=== PATIENT | female | born 1995 | race American Indian/Alaskan Native ===

== ENCOUNTER 2019-04-27 08:23 | Inpatient (IN) | payer OTHER ==
[2019-04-27] MEDS ORDERED: ONDANSETRON 4 MG ODT TAB PO ONE (08:39)
[2019-04-27] MEDS ORDERED: ONDANSETRON 4 MG ODT TAB ONE (08:42)
[2019-04-27 09:18] LABS: Basophils % (Auto) 0.4 % (0.0-1.8); Eosinophils # (Auto) 0.1 K/mm3 (0.0-0.4); Eosinophils % (Auto) 1.5 % (0.0-4.3); Hematocrit 41.5 % (30.3-42.9); Hemoglobin 13.2 gm/dl (10.1-14.3); Lymphocytes # (Auto) 2.3 K/mm3 (1.2-5.4); Lymphocytes % (Auto) 30.7 % (13.4-35.0); Mean Corpuscular HGB Conc 32 % (30-34); Mean Corpuscular Volume 76 fl (79-97); Monocytes # (Auto) 0.8 K/mm3 (0.0-0.8); Monocytes % (Auto) 10.6 % (0.0-7.3); Platelet Count 307 K/mm3 (140-440); Red Blood Count 5.46 M/mm3 (3.65-5.03); Red Cell Distribution Width 15.2 % (13.2-15.2)
[2019-04-27 09:38] LABS: Alanine Aminotransferase 14 units/L (7-56); BUN/Creatinine Ratio 15; Blood Urea Nitrogen 9 mg/dL (7-17); Calcium 9.6 mg/dL (8.4-10.2); Hemolysis Index 6
--- NOTE | 2019-04-27 09:38 | Ultrasound Report ---
US pelvis duplex doppler comp, US transvaginal / INDICATION: abd pain with hx ovarian torsion. COMPARISON: None. FINDINGS: Transabdominal and transvaginal pelvic sonography with Doppler evaluation performed in this patient with LMP of 04/04/2019 demonstrates a 6.1 x 3.3 x 3.9 cm anteverted, homogenous uterus. Echoge lidia endometrial stripe thickness of 0.5 cm toward the fundus, endovaginal image 5. Minimal fluid joshua g the lower uterine segment and the cervix incidentally noted. No significant pelvic free fluid. Both ovaries identified, approximately 2.4 x 1.5 x 1.4 cm on the right and 2.3 x 1.4 x 2.3 cm on the left. Normal left ovarian blood flow seen, though no significant internal blood flow in the right ova ry could not be documented. IMPRESSION: 1. Normal left ovarian blood flow, though no significant blood flow/normal waveform could be document ed in the right ovary. Right ovarian torsion not entirely excluded in this setting, though sonographi c findings alone are not confirmatory for torsion diagnosis and may also be correlated for clinically in an appropriate setting. 2. Few other findings, as above. I phoned the above results to Dr. Mccrary in the ER, 8:30 AM RESEARCH AND DEVELOPMENT RESEARCHER, 04/27/2019. Thank you for the opportunity to participate in this patient's care. Signer Name: Ryanne Anaya Signed: 04/27/2019 9:33 AM Workstation Name: [id number]
--- NOTE | 2019-04-27 09:38 | Ultrasound Report ---
US pelvis duplex doppler comp, US transvaginal / INDICATION: abd pain with hx ovarian torsion. COMPARISON: None. FINDINGS: Transabdominal and transvaginal pelvic sonography with Doppler evaluation performed in this patient with LMP of 04/04/2019 demonstrates a 6.1 x 3.3 x 3.9 cm anteverted, homogenous uterus. Echoge lidia endometrial stripe thickness of 0.5 cm toward the fundus, endovaginal image 5. Minimal fluid joshua g the lower uterine segment and the cervix incidentally noted. No significant pelvic free fluid. Both ovaries identified, approximately 2.4 x 1.5 x 1.4 cm on the right and 2.3 x 1.4 x 2.3 cm on the left. Normal left ovarian blood flow seen, though no significant internal blood flow in the right ova ry could not be documented. IMPRESSION: 1. Normal left ovarian blood flow, though no significant blood flow/normal waveform could be document ed in the right ovary. Right ovarian torsion not entirely excluded in this setting, though sonographi c findings alone are not confirmatory for torsion diagnosis and may also be correlated for clinically in an appropriate setting. 2. Few other findings, as above. I phoned the above results to Dr. Mccrary in the ER, 8:30 AM FOLDER MACHINE ADJUSTER, 04/27/2019. Thank you for the opportunity to participate in this patient's care. Signer Name: Ryanne Anaya Signed: 04/27/2019 9:33 AM Workstation Name: [id number]
--- NOTE | 2019-04-27 09:39 | Emergency Department Report ---
HPI - General Chief Complaint: Abdominal Pain Time Seen by Provider: 04/27/19 08:56 - HPI HPI: 23-year-old -Ch[place] female presents to the emergency department with the complaint of right-sided pelvic pain, nausea and vomiting, and a history of recent ovarian torsion. The patient was in [place] as of 2 weeks ago and went to an emergency department there and says she was diagnosed with ovarian torsion. The patient says that there was a specialist, which I assume to be TRAINING AND DEVELOPMENT HEAD, that was called but the patient says that she never saw the specialist and was discharged home to follow up with her primary TRAINING AND DEVELOPMENT HEAD and was told that the ovarian torsion at that time was "self correcting." The patient went into see her TRAINING AND DEVELOPMENT HEAD but was told that her insurance was not valid and was only valid in [place] and therefore they would not see her. The patient just kept it in control. She denies any fever, dysuria, vaginal bleeding or discharge. ED Past Medical Hx - Past Medical History Previous Medical History?: Yes Additional medical history: OVARIVAN TORSION - Social History Smoking Status: Never Smoker Substance Use Type: None ED Review of Systems ROS: Stated complaint: ABD PAIN/RECTUM PAIN/OVARIES Other details as noted in HPI Comment: All other systems reviewed and negative Constitutional: denies: chills, fever Eyes: denies: eye pain, vision change ENT: denies: ear pain, throat pain Respiratory: denies: cough, shortness of breath Cardiovascular: denies: chest pain, palpitations Gastrointestinal: nausea, vomiting Genitourinary: other (pelvic pain). denies: dysuria, discharge Musculoskeletal: denies: back pain, myalgia Skin: denies: rash, lesions Neurological: denies: headache, weakness Physical Exam - Physical Exam Vital Signs: Vital Signs 04/27/19 04/27/19 08:31 08:34 Temperature 98 F Pulse Rate 108 H Respiratory 18 Rate Blood Pressure 134/99 O2 Sat by Pulse 98 Oximetry Physical Exam: GENERAL: The patient is well-developed well-nourished. HEENT: Normocephalic. Atraumatic. Patient has moist mucous membranes. EYES: Extraocular motions are intact. NECK: Supple. Trachea is midline. CHEST/LUNGS: Clear to auscultation. There is no respiratory distress noted. HEART/CARDIOVASCULAR: Regular. There is no tachycardia. There is no murmur. ABDOMEN: Abdomen is soft. Unable to reproduce lower abdominal and pelvic right- sided pain to palpation. Patient has normal bowel sounds. There is no abdominal distention. SKIN:Skin is warm and dry. . NEURO: The patient is awake, alert, and oriented. The patient is cooperative. The patient has no focal neurologic deficits. Normal speech. MUSCULOSKELETAL: There is no tenderness or deformity. There is no evidence of acute injury. ED Course Vital Signs 04/27/19 04/27/19 08:31 08:34 Temperature 98 F Pulse Rate 108 H Respiratory 18 Rate Blood Pressure 134/99 O2 Sat by Pulse 98 Oximetry - Consultations Consultation #1: 04/27/19 09:42 I spoke with the TRAINING AND DEVELOPMENT HEAD on-call, Dr. Cote, who says that she is coming into the emergency department to evaluate this patient. ED Medical Decision Making - Lab Data Result diagrams: 04/27/19 08:48 04/27/19 08:48 - EKG Data -: EKG Interpreted by Me EKG shows normal: sinus rhythm (sinus arrhythmia), axis, intervals, QRS complexes, ST-T waves Rate: normal - EKG Data When compared to previous EKG there are: previous EKG unavailable Interpretation: normal EKG - Radiology Data Radiology results: report reviewed US pelvis duplex doppler comp, US transvaginal / INDICATION: abd pain with hx ovarian torsion. COMPARISON: None. FINDINGS: Transabdominal and transvaginal pelvic sonography with Doppler evaluation performed in this patient with LMP of 04/04/2019 demonstrates a 6.1 x 3.3 x 3.9 cm anteverted, homogenous uterus. Echogenic endometrial stripe thickness of 0.5 cm toward the fundus, endovaginal image 5. Minimal fluid along the lower uterine segment and the cervix incidentally noted. No significant pelvic free fluid. Both ovaries identified, approximately 2.4 x 1.5 x 1.4 cm on the right and 2.3 x 1.4 x 2.3 cm on the left. Normal left ovarian blood flow seen, though no significant internal blood flow in the right ovary could not be documented. IMPRESSION: 1. Normal left ovarian blood flow, though no significant blood flow/normal waveform could be documented in the right ovary. Right ovarian torsion not entirely excluded in this setting, though sonographic findings alone are not confirmatory for torsion diagnosis and may also be correlated for clinically in an appropriate setting. 2. Few other findings, as above. - Medical Decision Making This patient presents with right lower quadrant abdominal and pelvic pain, along with some nausea and vomiting. Labs are unremarkable. The patient had a stat pelvic ultrasound/Doppler that shows no blood flow to the right ovary. The TRAINING AND DEVELOPMENT HEAD on-call, Dr. Cote, was contacted and came to see the patient in the emergency department. She will be taking her to the operating room for surgical evaluation of this possible ovarian torsion. At one point, to the TRAINING AND DEVELOPMENT HEAD, the patient complained of some left lateral chest pain. The patient herself says it feels like when she has anxiety and the patient admits to feeling anxious secon jaycee to potentially going to the operating room. An EKG was done that shows sinus arrhythmia without any signs of ST elevation [place] or ischemia. - Differential Diagnosis ovarian torsion, ovarian cyst, , UTI Critical Care Time: Yes Critical care time in (mins) excluding proc time.: 35 Critical care attestation.: If time is entered above; I have spent that time in minutes in the direct care of this critically ill patient, excluding procedure time. Critical care time was spent on this patient in doing her initial evaluation, multiple re-evaluations, discussion with the OBGYN, discussion with radiology, analgesia, IVF resuscitation. Critical Care Time: 35 minutes ED Disposition Clinical Impression: Ovarian torsion Disposition: OP ADMIT IP TO THIS HOSP Is pt being admited?: Yes Condition: Serious Time of Disposition: 14:46
[2019-04-27 10:02] LABS: Bacteria,Urine 4+ /HPF (Negative); Bilirubin,Urine NEG (Negative); Blood,Urine LG (Negative); Color,Urine Yellow (Yellow); Hyaline Casts,Urine 1 /LPF; Mucus,Urine 3+ /HPF; Protein,Urine <15 mg/dL mg/dL (Negative); Urobilinogen,Urine < 2.0 mg/dL (<2.0)
[2019-04-27] MEDS ORDERED: MORPHINE 4 MG/1 ML INJ IV ONE (10:22)
[2019-04-27] MEDS ORDERED: ONDANSETRON 4 MG/2 ML INJ IV ONE (10:22)
[2019-04-27] MEDS ORDERED: ONDANSETRON 4 MG/2 ML INJ ONE ×2 (10:22→12:13)
[2019-04-27] MEDS ORDERED: MORPHINE 2 MG/1 ML INJ ONE (10:26)
[2019-04-27] MEDS ORDERED: PROPOFOL 200 MG/20 ML VIAL IV ONE ×2 (12:13→17:21)
[2019-04-27] MEDS ORDERED: LIDOCAINE MPF (2%) 20 MG/1 ML VIAL 5 ML ONE ×2 (12:13→17:20)
[2019-04-27] MEDS ORDERED: NEOSTIGMINE 10MG/10 ML INJ MDV ONE (12:13)
[2019-04-27] MEDS ORDERED: GLYCOPYRROLATE 0.4 MG/2 ML INJ ONE (12:13)
[2019-04-27] MEDS ORDERED: BUPIVACAINE/PF (0.5%) 5 MG/1 ML 30 ML VIAL INFILTRATI ONE ×4 (12:13→18:56)
[2019-04-27] MEDS ORDERED: SUCCINYLCHOLINE CHLORIDE 200 MG/10 ML INJ MDV ONE (12:13)
[2019-04-27] MEDS ORDERED: fentaNYL 250 MCG/5 ML INJ ONE (12:13)
[2019-04-27] MEDS ORDERED: dexAMETHasone 20 MG/5 ML VIAL ONE (12:13)
[2019-04-27] MEDS ORDERED: ROCURONIUM 50 MG/5 ML INJ IV ONE ×2 (12:13→17:20)
[2019-04-27] MEDS ORDERED: LACTATED RINGERS 1,000 ML ONE ×2 (12:32→18:49)
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
--- NOTE | 2019-04-27 12:38 | Anesthesia Consultation ---
Anesthesia Consult and Med Hx Date of service: 04/27/19 - Airway Anesthetic Teeth Evaluation: Good ROM Head & Neck: Adequate Mental/Hyoid Distance: Adequate Mallampati Class: Class I Intubation Access Assessment: Good - Pulmonary Exam CTA: Yes - Cardiac Exam Cardiac Exam: No Murmur - Pre-Operative Health Status ASA Pre-Surgery Classification: ASA3 Proposed Anesthetic Plan: General - Pulmonary Hx Smoking: Yes (approx 1 cigar per day, last cigar 04/27/19 @0530) Hx Asthma: No Hx Respiratory Symptoms: No SOB: No COPD: No Home Oxygen Therapy: No Hx Pneumonia: Yes (childhood) Hx Sleep Apnea: Yes (snores) - Cardiovascular System Hx Hypertension: No Hx Coronary Artery Disease: No Hx Heart Attack/AMI: No (patient states told that she had a heart attack but it was skipped beats) Hx Angina: No Hx Percutaneous Transluminal Coronary Angioplasty (PTCA): No Hx Cardia Arrhythmia: Yes (patient states she was told she had skipped beats) Hx Pacemaker: No Hx Internal Defibrillator: No Hx Valvular Heart Disease: No Hx Heart Murmur: No Hx Peripheral Vascular Disease: No - Central Nervous System Hx Seizures: Yes (pseudo-seizures brought on by anxiety ) CVA: No Hx Back Pain: Yes Hx Psychiatric Problems: Yes (severe anxiety) - Gastrointestinal Hx Ulcer: Yes Hx Gastroesophageal Reflux Disease: Yes (was taking nexium previously. this has been stopped) - Endocrine Hx Renal Disease: No Hx End Stage Renal Disease: No Hx Cirrhosis: No Hx Liver Disease: No Hx Insulin Dependent Diabetes: No Hx Non-Insulin Dependent Diabetes: No Hx Thyroid Disease: Yes Hx Hypothyroidism: No Hx Hyperthyroidism: Yes (not currently taking medication) - Hematic Hx Anemia: Yes Hx Sickle Cell Disease: No - Other Systems Hx Alcohol Use: Yes (once every 2 weeks) Hx Substance Use: Yes (marijuana use) Hx Cancer: No Hx Obesity: Yes
--- NOTE | 2019-04-27 12:45 | Anesthesia Day of Surgery ---
Anesthesia Day of Surgery - Day of Surgery Patient Examined: Yes Patient H&P Reviewed: Yes Patient is NPO: Yes
[2019-04-27] MEDS ORDERED: HYDROmorphone 1 MG/1 ML INJ IV PRN (12:46)
[2019-04-27] MEDS ORDERED: KETOROLAC 30 MG/1 ML INJ ONE (13:00)
[2019-04-27] MEDS ORDERED: ceFAZolin/STERILE WATER 2 GM/20 ML SYRINGE IV NR (13:01)
[2019-04-27] MEDS ORDERED: LACTATED RINGERS 1,000 ML IV SCH (13:01)
[2019-04-27] MEDS ORDERED: HYDROmorphone 1 MG/1 ML INJ IV ONE (13:52)
--- NOTE | 2019-04-27 14:36 | Consultation ---
History of Present Illness Consult date: 04/27/19 Consult reason: pre op evaluation History of present illness: This is a 23 year old female with a reports right ovarian torsion diagnosed in February at [place], [place]. She was discharged and told to follow-up with a statistical analyst but has not do so. Patient now presents with complaints of right lower quadrant pain with nausea and vomiting. Patient reports symptoms began 3 days ago after she ran out of pain medications. Patient has been evaluated by Gynecology and is planned for surgery. There is no prior cardiac history. Patient denies chest pain and unusual shortness of breath. A 12 lead ECG is sinus rhythm with anterolateral abnormalities. There is no prior ECG available for comparison. A cardiac consultation has been requested for pre-operative risk assessment. 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) Medications and Allergies Allergies Allergy/AdvReac Type Severity Reaction Status Date / Time dicyclomine [From Bentyl] Allergy Rash Verified 04/27/19 11:55 haloperidol [From Haldol] Allergy Hives Verified 04/27/19 08:26 latex Allergy Hives Verified 04/27/19 08:26 meloxicam Allergy Rash Verified 04/27/19 11:55 tramadol Allergy Hives Verified 04/27/19 08:26 Active Meds: Active Medications Cefazolin Sodium (Ancef/Sterile Water 2 Gm/20 Ml) 2 gm IV PREOP NR Stop: 04/28/19 13:00 Hydromorphone HCl (Dilaudid) 0.5 mg IV Q10MIN PRN PRN Reason: Pain , Severe (7-10) Stop: 04/27/19 23:59 Lactated Ringer's (Lactated Ringers) 1,000 mls @ 100 mls/hr IV DIRECT MEMO Physical Examination Vital Signs Pulse BP Pulse Ox 108 H 134/99 98 04/27/19 08:31 04/27/19 08:31 04/27/19 08:31 General appearance: no acute distress, obese HEENT: Positive: PERRL Neck: Positive: trachea midline Cardiac: Positive: Reg Rate and Rhythm Lungs: Positive: Normal Breath Sounds Neuro: Positive: Grossly Intact Extremities: Absent: edema Results 04/27/19 08:48 04/27/19 08:48 Cardiac Enzymes 04/27/19 Range/Units 08:48 AST 15 (5-40) units/L CBC 04/27/19 Range/Units 08:48 WBC 7.4 (4.5-11.0) K/mm3 RBC 5.46 H (3.65-5.03) M/mm3 Hgb 13.2 (10.1-14.3) gm/dl Hct 41.5 (30.3-42.9) % Plt Count 307 (140-440) K/mm3 Lymph # 2.3 (1.2-5.4) K/mm3 [place] # 0.8 (0.0-0.8) K/mm3 Eos # 0.1 (0.0-0.4) K/mm3 Baso # 0.0 (0.0-0.1) K/mm3 Comprehensive Metabolic Panel 04/27/19 Range/Units 08:48 Sodium 142 (137-145) mmol/L Potassium 4.2 (3.6-5.0) mmol/L Chloride 108.0 H (98-107) mmol/L Carbon Dioxide 19 L (22-30) mmol/L BUN 9 (7-17) mg/dL Creatinine 0.6 L (0.7-1.2) mg/dL Glucose 106 H (65-100) mg/dL Calcium 9.6 (8.4-10.2) mg/dL AST 15 (5-40) units/L ALT 14 (7-56) units/L Alkaline Phosphatase 101 (35-129) units/L Total Protein 7.7 (6.3-8.2) g/dL Albumin 4.0 (3.9-5) g/dL Assessment and Plan Right lower quadrant pain Abnormal ECG Cardiac risk assessment Recommendations: Obtain a prior ECG for cardiac review. Echocardiogram for LVEF assessment.
[2019-04-27] MEDS ORDERED: MIDAZOLAM 2 MG/2 ML INJ IV ONE (16:28)
[2019-04-27] MEDS ORDERED: MIDAZOLAM 2 MG/2 ML INJ ONE (17:21)
[2019-04-27] MEDS ORDERED: fentaNYL 100 MCG/2 ML INJ ONE ×2 (17:21→18:37)
[2019-04-27] MEDS ORDERED: HYDROmorphone 1 MG/1 ML INJ ONE ×2 (18:08→19:06)
[2019-04-27] MEDS ORDERED: SUGAMMADEX SODIUM 200 MG/2 ML VIAL IV ONE (18:50)
[2019-04-27] MEDS ORDERED: IBUPROFEN 600 MG TAB PO PRN (19:41)
[2019-04-27] MEDS ORDERED: HYDROcodone/ACETAMINOPHEN 5-325 MG TAB PO PRN (19:41)
[2019-04-27] MEDS ORDERED: ACETAMINOPHEN 325 MG TAB PO PRN (19:41)
--- NOTE | 2019-04-27 19:41 | Operative Report ---
Operative Report Operative Report: Preop diagnosis 1. Acute abdominal pain 2. Suspected ovarian torsion - right ovary no blood flow Postop diagnosis 1. Acute abdominal pain 2. Hemoperitoneum 3. Evidence of ruptured right ovarian hemorrhagic cyst Procedure 1. Diagnostic laparoscopy Surgeon Dr. Myla Cote Findings 1. 6-7 week anteverted uterus 2. Normal appearing bilateral ovaries. No ovarian torsion noted right or left ovary. 3. Normal bilateral fallopian tubes. 4. Small (~10cc) blood clots in right adnexa suggestive of previously ruptured hemorrhagic ovarian cyst 5. Menstrual bleeding 6. No evidence of endometriosis Specimen: 1. None Anesthesia: General I/O EBL: <25ml Urine: 50-100cc clear Complications: none Disposition: Patient to PACU in stable condition INDICATION: 23yo G0 presented to ER complaining of acute abdominal pain. She was previously seen 3 weeks ago at a hospital in [place] and told she had an ovarian torsion and discharged with narcotics. Today ultrasound revealed no blood flow to right ovary and concern for ovarian torsion. Due to diagnosis of ovarian torsion as medical emergency recommendation to proceed to diagnostic laparoscopy was made. The risks including but not limited to bleeding, infection, injury to vessels, bladder and/or bowel, possible normal findings and nerve injury were discussed. Benefits and alternatives were discussed and informed consent signed. Due to abnormal EKG that patient had a pre-op cardiology consult and ECHO and was cleared for surgery. PROCEDURE: The patient was taken to OR 3 in stable condition. She was placed on the bed in the supine position and adequate anesthesia was achieved. She wore SCDs for DVT prophylaxis and received Ancef 2g. She was prepped and draped in the sterile fashion and a time out was done. She was re-positioned in the dorsal lithotomy position with Shiraz stirrups. A Mojica catheter was placed to drain the bladder. A sterile speculum was placed per vagina and a single toothed tenaculum was placed on the anterior lip of the cervix. The uterus was sounded to 6cm. A uterine manipulator was placed. Attention was then turned to the abdomen where a 0.5cm infraumbilical incision was made. A 5mm Applied Fios trocar was used to insufflate the abdomen with CO2 gas. The opening pressure was noted to be >10mm Hg. An intra-abdominal survey noted a normal right ovary with a small amount of clots in the right adnexa. No signs of endometriosis or pelvic adhesions were noted. A RLQ 5mm incision was made and 5mm trocar placed under direct visualization. An intra-abdominal survey noted grossly normal findings including no hepatic adhesions and normal appearing appendix. . The tubes, ovaries and uterus were grossly normal appearing. The RLQ trocar was removed under direct visualization. The abdomen was freed of gas and the infraumbilical trocar was removed. 0.5% Marcaine was injected into the abdominal incisions. The skin of both incisions was closed with 4-0 Vicryl. Attention was then turned to the perineum and uterine manipulator and Mojica catheter were removed. The procedure was ended. All counts were correct x 2. The patient was awakened from anesthesia in stable condition and transported to the PACU. I was present and scrubbed for the entire procedure.
[2019-04-27] MEDS ORDERED: ONDANSETRON 4 MG/2 ML INJ IV PRN (19:43)
[2019-04-27] MEDS ORDERED: diphenhydrAMINE 25 MG CAP PO PRN (19:43)
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
[2019-04-27] MEDS ORDERED: PROMETHAZINE 25 MG TAB PO PRN (20:27)
[2019-04-27] MEDS ORDERED: ZOLPIDEM 5 MG TAB PO PRN (20:27)
[2019-04-27] MEDS: FAMOTIDINE 20 MG TAB PO SCH (21:46)
[2019-04-27] MEDS: MORPHINE 2 MG/1 ML INJ IV PRN (21:47)
[2019-04-28] MEDS: MORPHINE 2 MG/1 ML INJ IV PRN (02:34)
[2019-04-28] MEDS: FAMOTIDINE 20 MG TAB PO SCH (09:27)
[2019-04-28 12:01] VITALS: BP 120/69
--- NOTE | 2019-04-28 13:31 | Consultation ---
History of Present Illness - Reason for Consult Consult date: 04/27/19 Medical clearance Requesting physician: LILLI WILSON - History of Present Illness 23-year-old -[place] female with obesity presents with right lower quadrant pain with nausea and vomiting. Is been going on for 3 days. Patient was evaluated in the emergency room and by gynecology and patient apparently has right ovarian torsion. Patient to be taken to the OR for surgery. EKG was abnormal hence medical clearance and cardiac clearance. I have requested cardiology clearance because of the emergent nature of clearance. No palpitations no shortness of breath. No chest pain. No recent travel. 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[employer]) Family history: hypertension Medications and Allergies Allergies Allergy/AdvReac Type Severity Reaction Status Date / Time dicyclomine [From Bentyl] Allergy Rash Verified 04/27/19 11:55 haloperidol [From Haldol] Allergy Hives Verified 04/27/19 08:26 latex Allergy Hives Verified 04/27/19 08:26 meloxicam Allergy Rash Verified 04/27/19 11:55 tramadol Allergy Hives Verified 04/27/19 08:26 Home Medications Medication Instructions Recorded Confirmed Last Taken Type HYDROcodone/APAP 5-325 [[place] 1 each PO Q6HR PRN 10 Days #20 04/27/19 Unknown Rx 5/325] tablet Ibuprofen [Motrin 800 MG tab] 800 mg PO Q8HR PRN 30 Days #30 04/27/19 Unknown Rx tablet Active Meds: Active Medications Acetaminophen (Tylenol) 650 mg PO Q4H PRN PRN Reason: Pain MILD(1-3)/Fever >100.5/TRIANA Acetaminophen/Hydrocodone Bitart ([place] 5/325) 2 each PO Q6H PRN PRN Reason: Pain, Moderate (4-6) Last Admin: 04/28/19 09:27 Dose: 2 each Documented by: Diphenhydramine HCl (Benadryl) 25 mg PO Q6H PRN PRN Reason: Itching Famotidine (Pepcid) 20 mg PO BID MEMO Last Admin: 04/28/19 09:27 Dose: 20 mg Documented by: Lactated Ringer's (Lactated Ringers) 1,000 mls @ 100 mls/hr IV DIRECT MEMO Last Admin: 04/27/19 12:40 Dose: 100 mls/hr Documented by: Ibuprofen (Ibuprofen) 600 mg PO Q6H PRN PRN Reason: Pain, Mild (1-3) Morphine Sulfate (Morphine) 2 mg IV Q3H PRN PRN Reason: Pain , Severe (7-10) Last Admin: 04/28/19 02:34 Dose: 2 mg Documented by: Ondansetron HCl (Zofran) 4 mg IV Q8H PRN PRN Reason: Nausea And Vomiting Promethazine HCl (Phenergan) 25 mg PO Q6H PRN PRN Reason: Nausea And Vomiting Last Admin: 04/27/19 21:46 Dose: 25 mg Documented by: Zolpidem Tartrate (Ambien) 5 mg PO QHS PRN PRN Reason: Sleep Review of Systems All systems: negative Ears, nose, mouth and throat: no ear pain, no ear discharge, no tinnitis, no decreased hearing Breasts: deferred Cardiovascular: no chest pain, no orthopnea, no palpitations, no rapid/irregular heart beat, no edema, no syncope, no lightheadedness, no shortness of breath Respiratory: no cough, no cough with sputum, no excessive sputum, no hemoptysis, no shortness of breath, no dyspnea on exertion Genitourinary Female: no dysuria, no urinary frequency Rectal: no pain, no incontinence Musculoskeletal: no neck stiffness, no neck pain, no shooting arm pain, no arm numbness/tingling, no low back pain Integumentary: no rash, no pruritis, no redness, no sores, no wounds Neurological: no seizures, no syncope Psychiatric: no anxiety, no memory loss, no change in sleep habits Endocrine: no cold intolerance, no heat intolerance, no polyphagia, no excessive thirst, no polydipsia Hematologic/Lymphatic: no easy bruising, no easy bleeding Allergic/Immunologic: no urticaria, no allergic rhinitis, no wheezing Exam - Constitutional Vitals: Temp Pulse Resp BP Pulse Ox 98.0 F 91 H 18 120/69 100 04/28/19 11:53 04/28/19 11:53 04/28/19 11:53 04/28/19 11:53 04/28/19 11:53 General appearance: Present: no acute distress, well-nourished - EENT Eyes: Present: PERRL ENT: hearing intact, clear oral mucosa - Neck Neck: Present: supple, normal ROM - Respiratory Respiratory effort: normal Respiratory: bilateral: CTA - Cardiovascular Heart Sounds: Present: S1 & S2. Absent: rub, click - Extremities Extremities: pulses symmetrical, No edema Peripheral Pulses: within normal limits - Abdominal General gastrointestinal: Present: soft, non-tender, non-distended, normal bowel sounds Localized gastrointestinal: tender: RLQ, guarding: RLQ Female genitourinary: Present: normal - Rectal Rectal Exam: deferred - Integumentary Integumentary: Present: clear, warm, dry - Musculoskeletal Musculoskeletal: gait normal, strength equal bilaterally - Psychiatric Psychiatric: appropriate mood/affect, intact judgment & insight - Neurologic Neurologic: CNII-XII intact, moves all extremities - Allied Health Allied health notes reviewed: nursing, case management Results - Labs CBC & Chem 7: 04/27/19 08:48 04/27/19 08:48 Labs: CT abdomen/pelvis IMPRESSION: 1. Normal left ovarian blood flow, though no significant blood flow/normal waveform could be documented in the right ovary. Right ovarian torsion not entirely excluded in this setting, though sonographic findings alone are not confirmatory for torsion diagnosis and may also be correlated for clinically in an appropriate setting. 2. Few other findings, as above. EKG SINUS RHYTHM ABNORMAL Q SUGGESTS ANTERIOR INFARCT ABNRM T, CONSIDER ISCHEMIA, ANTEROLATERAL LDS ABOVE ST-T CHANGES ARE NEW FROM EARLIER EKG DONE 5 MINUTES AGO,CORRELATE CLINICALLY. [place]: 200 P [place]: 6 QRS Dur: 98 QRS [place]: 5 QT: 441 T [place]: 100 QTc: 483 HR: 72 QT Disp: 42 BP: - Imaging and Cardiology CT scan - abdomen: report reviewed Assessment and Plan - Patient Problems (1) Encounter for medical clearance for patient hold Current Visit: Yes Status: Acute Plan to address problem: Patient in whole status Abnormal EKG Clinically no indication for cardiac ischemia Echocardiogram normal (2) Ovarian torsion Current Visit: Yes Status: Acute Plan to address problem: Patient medically cleared for surgery. (3) Abnormal electrocardiogram finding Current Visit: Yes Status: Acute Plan to address problem: Patient does not have any chest pain Clinically no myocardial ischemia Patient medically cleared for surgery (4) DVT prophylaxis Current Visit: Yes Status: Acute Plan to address problem: On heparin subcu 5000 every 12
--- NOTE | 2019-04-28 13:40 | Progress Note ---
Assessment and Plan - Patient Problems (1) Encounter for medical clearance for patient hold Current Visit: Yes Status: Acute Plan to address problem: Patient is medically and cardiology was cleared. Patient can go for right away and surgery for torsion. Including removal of the torsion and also Patient informed Abnormal EKG Clinically no indication for cardiac ischemia Echocardiogram normal patient already cleared. (2) Ovarian torsion Current Visit: Yes Status: Acute Plan to address problem: Patient medically cleared for surgery. (3) Abnormal electrocardiogram finding Current Visit: Yes Status: Acute Plan to address problem: Patient does not have any chest pain Clinically no myocardial ischemia Patient medically cleared for surgery (4) DVT prophylaxis Current Visit: Yes Status: Acute Plan to address problem: On heparin subcu 5000 every 12 Heparin 5000 every 12. Subjective Date of service: 04/28/19 Principal diagnosis: Right ovarian torsion Interval history: Patient went to surgery yesterday and the right torsion of the ovary was corrected. Postop patient doing well. Objective - Constitutional Vitals: Vital Signs - 12hr 04/28/19 04/28/19 04/28/19 05:17 07:17 07:20 Temperature 97.8 F 97.9 F Pulse Rate 96 H 73 80 Respiratory 18 20 Rate Blood Pressure 125/80 104/69 O2 Sat by Pulse 99 100 100 Oximetry 04/28/19 11:53 Temperature 98.0 F Pulse Rate 91 H Respiratory 18 Rate Blood Pressure 120/69 O2 Sat by Pulse 100 Oximetry General appearance: Present: no acute distress, well-nourished - EENT Eyes: PERRL, EOM intact ENT: hearing intact, clear oral mucosa Ears: bilateral: normal - Neck Neck: supple, normal ROM - Respiratory Respiratory effort: normal Respiratory: bilateral: CTA - Breasts Breasts: normal - Cardiovascular Rhythm: regular Heart Sounds: Present: S1 & S2. Absent: gallop, rub Extremities: pulses intact, No edema, normal color, Full ROM - Gastrointestinal General gastrointestinal: Present: soft, non-tender, non-distended, normal bowel sounds - Genitourinary Female genitourinary: normal - Integumentary Integumentary: clear, warm, dry - Musculoskeletal Musculoskeletal: 1, strength equal bilaterally - Neurologic Neurologic: moves all extremities - Psychiatric Psychiatric: memory intact, appropriate mood/affect, intact judgment & insight - Labs CBC & Chem 7: 04/27/19 08:48 04/27/19 08:48
== END 2019-04-28 12:15 | disposition home or self-care (01) | DRG 744 ==
LOC: ED 08:23 → OR 14:30 → OB 20:35
PROVIDERS: ADMIT Obstetrics & Gynecology; ATTEND Obstetrics & Gynecology
PROC: 0WJJ4ZZ Inspection of Pelvic Cavity, Percutaneous Endoscopic Approach (ICD-10-PCS; principal; 2019-04-27)
DX: N83.201 Unspecified ovarian cyst, right side (principal); K66.1 Hemoperitoneum; Z68.41 Body mass index [BMI] 40.0-44.9, adult; K21.9 Gastro-esophageal reflux disease without esophagitis; K59.09 Other constipation; F17.210 Nicotine dependence, cigarettes, uncomplicated; F41.9 Anxiety disorder, unspecified; D64.9 Anemia, unspecified; E66.9 Obesity, unspecified; R94.31 Abnormal electrocardiogram [ECG] [EKG]; Z88.8 Allergy status to other drugs, medicaments and biological substances; Z88.6 Allergy status to analgesic agent; Z91.040 Latex allergy status; Z82.49 Family history of ischemic heart disease and other diseases of the circulatory system; Z91.410 Personal history of adult physical and sexual abuse; Z87.01 Personal history of pneumonia (recurrent)
CPT/HCPCS: 36415; 76830; 80053; 81001; 83690; 84703; 85025; 86850; 86900; 86901; 93005; 93010; 93306; 93975; G0378; J0330; J0690; J1100; J1170; J1885; J2250; J2270; J2405; J2704; J2710; J3010; J7120; Q0162; Q0169